=== PATIENT | male | born 1945 | race Caucasian/White ===

== ENCOUNTER 2017-08-05 07:54 | Inpatient (IN) | payer MEDICARE ==
[~2017-08-05] VITALS: Ht 170.2 cm; Wt 66.2 kg
[~2017-08-05 07:54] MED LIST: ALBU2.5V12 NEB; ALLO100T PO; AMLO10TA PO; ATOR40TA PO; BUDE10.2 INH; CYCL-1 PO; FAMO20TA8 PO; FLO0.4C PO; FLUT16SP2 BOTHNARES; FURO80TA87 PO; GABA-532 PO; GUAI-652 PO; LEVO25TA2 PO; MAGN400T6 PO; METO-384 PO; ONDA4TAB9 PO; OXYC-580 PO; PRED10TA23 PO; TRIH5TAB2 PO; VITA-268 PO; ZOLP10TA5 PO
[2017-08-05] MEDS ORDERED: ALBU2.5V11 PO (08:23)
[2017-08-05] MEDS ORDERED: ALLO100T PO (08:24)
[2017-08-05] MEDS ORDERED: AMLO2.5T2 PO (08:25)
[2017-08-05] MEDS ORDERED: VITA-268 PO (08:26)
[2017-08-05] MEDS ORDERED: ATOR40TA PO (08:26)
[2017-08-05] MEDS ORDERED: CHOL2000 PO (08:27)
[2017-08-05] MEDS ORDERED: FAMO20TA8 PO (08:28)
[2017-08-05] MEDS ORDERED: TAMS0.4C32 PO (08:29)
[2017-08-05] MEDS ORDERED: GABA-532 PO (08:32)
[2017-08-05] MEDS ORDERED: FURO-150 PO (08:33)
[2017-08-05] MEDS ORDERED: piperacillin/tazo 4.5gm/100ml 100 ML IV STA (08:34)
[2017-08-05 08:35] LABS: BASOPHILS % (AUTO) 0.2 % (0-1); EOSINOPHILS # (AUTO) 0.2 X10'3 (0-0.9); EOSINOPHILS % (AUTO) 1.5 % (0-6); HEMOGLOBIN 11.5 g/dl (14.0-17.9); LYMPHOCYTES # (AUTO) 1.2 X10'3 (1.1-4.8); LYMPHOCYTES % (AUTO) 8.4 % (21-51); MEAN CORPUSCULAR HEMOGLOBIN 37.2 PG (27.0-31.0); MEAN CORPUSCULAR HGB CONC 34.8 % (33.0-36.5); MEAN CORPUSCULAR VOLUME 106.9 FL (78-98); MONOCYTES # (AUTO) 0.6 X10'3 (0-0.9); MONOCYTES % (AUTO) 4.1 % (2-12); NEUTROPHILS # (AUTO) 12.5 X10'3 (1.8-7.7); NEUTROPHILS % (AUTO) 85.8 % (42-75); PLATELET COUNT 182 X10'3 (140-440); RED BLOOD COUNT 3.09 X10'6 (4.70-6.10); RED CELL DISTRIBUTION WIDTH 17.3 % (11.5-14.5); WHITE BLOOD COUNT 14.5 X10'3 (4.5-11.0)
[2017-08-05] MEDS ORDERED: LEVO25TA2 PO (08:35)
[2017-08-05] MEDS ORDERED: normal saline 1000ML IV soln IVB ONE (08:35)
[2017-08-05] MEDS ORDERED: PRED5TAB PO (08:36)
[2017-08-05] MEDS ORDERED: PER5325T PO (08:38)
[2017-08-05] MEDS ORDERED: METO50TA16 (08:39)
[2017-08-05] MEDS ORDERED: METO50TA16 PO (08:43)
[2017-08-05] MEDS ORDERED: BUDE10.2 INH (08:44)
[2017-08-05] MEDS ORDERED: MAGN400T39 PO (08:44)
[2017-08-05 08:45] LABS: PARTIAL THROMBOPLASTIN TIME 24 SECONDS (22-32); PROTHROMBIN TIME 10.6 SECONDS (9.0-12.0)
[2017-08-05] MEDS ORDERED: ONDA4TAB9 PO (08:49)
[2017-08-05 08:50] LABS: ALANINE AMINOTRANSFERASE 54 U/L (12-78); ALBUMIN 3.2 G/DL (3.4-5.0); ALBUMIN/GLOBULIN RATIO 0.8 (1.1-1.5); ALKALINE PHOSPHATASE 110 IU/L (46-116); ANION GAP 9 (8-16); ASPARTATE AMINO TRANSFERASE 23 U/L (10-37); BILIRUBIN,TOTAL 0.9 MG/DL (0.1-1.0); BLOOD UREA NITROGEN 39 MG/DL (7-18); BUN/CREATININE RATIO 8.6 (5.4-32.0); CALCIUM 9.2 MG/DL (8.5-10.1); CHLORIDE 101 MMOL/L (99-107); CREATININE 4.51 MG/DL (0.60-1.10); GLUCOSE 102 MG/DL (70-104); POTASSIUM 4.3 MMOL/L (3.5-5.1); SODIUM 140 MMOL/L (135-145); TOTAL CARBON DIOXIDE 29.6 MMOL/L (24-32); TOTAL PROTEIN 7.1 G/DL (6.4-8.2); eGFR 13 ML/MIN
[2017-08-05 09:00] LABS: CLARITY,URINE CLEAR (Clear); COLOR,URINE YELLOW (Yellow); GLUCOSE, URINE 100 mg/dl (Neg); KETONES,URINE NEGATIVE (Neg); LEUKOCYTE ESTERASE ,URINE NEGATIVE (Neg); NITRITES, URINE NEGATIVE (Neg); OCCULT BLOOD,URINE TRACE-INTACT (Neg); PH,URINE 8.5 (4.8-8.0); PROTEIN,URINE 100 mg/dl (Neg); UROBILINOGEN,URINE 0.2 E.U/dL (0.2-1.0)
[2017-08-05] MEDS ORDERED: acetaminophen 1,000mg/100ml IV 100 ML IV ONE (09:00)
[2017-08-05 09:06] LABS: UA COLLECTION TYPE VOIDED
[2017-08-05 09:07] LABS: SQUAMOUS EPITHELIAL CELL,UR FEW /LPF (FEW)
[2017-08-05 09:08] LABS: BACTERIA,URINE FEW /HPF (Neg); RBC,URINE 0-2 /HPF (0-2); WBC,URINE 0-4 /HPF (0-4)
[2017-08-05] MEDS ORDERED: piperacillin-tazo 2.25gm/50ml 50 ML IV SCH (09:15)
[2017-08-05] MEDS ORDERED: acetaminophen 325mg tablet PO PRN (09:15)
[2017-08-05 09:16] LABS: TOTAL CELLS COUNTED 100
[2017-08-05 09:17] LABS: ANISOCYTOSIS 1+; PLATELET ESTIMATE NORMAL
[2017-08-05 09:19] LABS: POLYCHROMASIA FEW; SPHEROCYTES 1+
[2017-08-05 09:20] LABS: TOXIC GRANULATION 1+; TOXIC VACUOLATION FEW
[2017-08-05] MEDS ORDERED: METO25TA6 PO (09:35)
[2017-08-05] MEDS: amLODIPine 5mg tablet PO SCH (10:41)
[2017-08-05] MEDS: gabapentin 300mg capsule PO SCH (10:41)
[2017-08-05] MEDS: levoTHYROXINE 25mcg tablet PO SCH (10:41)
[2017-08-05] MEDS: predniSONE 5mg tablet PO SCH (10:42)
[2017-08-05] MEDS: HYDROcodone/acetaminophen 5mg/325mg tablet PO PRN (10:42)
[2017-08-05] MEDS: furosemide 20MG tablet PO SCH (10:42)
[2017-08-05] MEDS: allopurinol 100mg tablet PO SCH (10:43)
[2017-08-05] MEDS: albuterol 2.5 MG/3 ML nebule NEB PRN ×2 (11:14→20:27)
[2017-08-05 14:20] VITALS: BP 116/63
[2017-08-05] MEDS: oxyCODONE/APAP 5-325mg tablet PO PRN (16:12)
[2017-08-05] MEDS: piperacillin-tazo 2.25gm/50ml 50 ML IV SCH ×2 (16:43→17:14)
[2017-08-05 19:00] VITALS: BP 129/63
[2017-08-05] MEDS: docusate sod 100mg capsule PO SCH (20:17)
[2017-08-05] MEDS: famotidine 20mg tablet PO SCH (20:17)
[2017-08-05] MEDS: heparin, porcine 5000 units/ml vial SQ SCH (20:18)
[2017-08-05 23:00] VITALS: BP 133/64
[2017-08-06] MEDS: piperacillin-tazo 2.25gm/50ml 50 ML IV SCH ×4 (02:37→20:00)
[2017-08-06 03:00] VITALS: BP 135/68
[2017-08-06 05:22] LABS: BASOPHILS % (AUTO) 0.2 % (0-1); EOSINOPHILS # (AUTO) 0.2 X10'3 (0-0.9); EOSINOPHILS % (AUTO) 1.4 % (0-6); HEMATOCRIT 29.7 % (42.0-52.0); LYMPHOCYTES % (AUTO) 6.6 % (21-51); MEAN CORPUSCULAR HEMOGLOBIN 36.6 PG (27.0-31.0); MEAN CORPUSCULAR HGB CONC 33.7 % (33.0-36.5); MEAN CORPUSCULAR VOLUME 108.7 FL (78-98); MEAN PLATELET VOLUME 6.5 FL (7.4-10.4); MONOCYTES # (AUTO) 0.6 X10'3 (0-0.9); MONOCYTES % (AUTO) 4.2 % (2-12); NEUTROPHILS % (AUTO) 87.6 % (42-75); PLATELET COUNT 160 X10'3 (140-440); RED BLOOD COUNT 2.73 X10'6 (4.70-6.10); RED CELL DISTRIBUTION WIDTH 17.8 % (11.5-14.5); WHITE BLOOD COUNT 14.9 X10'3 (4.5-11.0)
[2017-08-06 05:39] LABS: ALANINE AMINOTRANSFERASE 35 U/L (12-78); ALBUMIN 2.7 G/DL (3.4-5.0); ALBUMIN/GLOBULIN RATIO 0.7 (1.1-1.5); ALKALINE PHOSPHATASE 96 IU/L (46-116); ANION GAP 12 (8-16); ASPARTATE AMINO TRANSFERASE 14 U/L (10-37); BILIRUBIN,TOTAL 0.7 MG/DL (0.1-1.0); BLOOD UREA NITROGEN 56 MG/DL (7-18); CALCIUM 9.1 MG/DL (8.5-10.1); CHLORIDE 100 MMOL/L (99-107); CREATININE 6.23 MG/DL (0.60-1.10); GLUCOSE 114 MG/DL (70-104); MAGNESIUM 2.6 MG/DL (1.5-2.4); PHOSPHORUS 4.7 MG/DL (2.3-4.5); POTASSIUM 4.2 MMOL/L (3.5-5.1); SODIUM 139 MMOL/L (135-145); TOTAL CARBON DIOXIDE 27.2 MMOL/L (24-32); TOTAL PROTEIN 6.5 G/DL (6.4-8.2); eGFR 9 ML/MIN
[2017-08-06 05:56] LABS: PLATELET ESTIMATE NORMAL; TOTAL CELLS COUNTED 100
[2017-08-06 05:58] LABS: ANISOCYTOSIS 2+; TOXIC GRANULATION 3+
[2017-08-06 06:00] LABS: POLYCHROMASIA FEW; SPHEROCYTES 1+; TOXIC VACUOLATION FEW
[2017-08-06] MEDS: HYDROcodone/acetaminophen 5mg/325mg tablet PO PRN ×3 (06:46→19:58)
[2017-08-06 07:00] VITALS: BP 128/72
[2017-08-06] MEDS: gabapentin 300mg capsule PO SCH (07:56)
[2017-08-06] MEDS: furosemide 20MG tablet PO SCH (07:56)
[2017-08-06] MEDS: allopurinol 100mg tablet PO SCH (07:56)
[2017-08-06] MEDS: docusate sod 100mg capsule PO SCH ×2 (07:57→19:57)
[2017-08-06] MEDS: magnesium oxide 400mg tablet PO SCH (07:57)
[2017-08-06] MEDS: atorvastatin 20mg tablet PO SCH (07:57)
[2017-08-06] MEDS: levoTHYROXINE 25mcg tablet PO SCH (07:57)
[2017-08-06] MEDS: predniSONE 5mg tablet PO SCH (07:57)
[2017-08-06] MEDS: famotidine 20mg tablet PO SCH ×2 (07:57→19:57)
[2017-08-06] MEDS: amLODIPine 5mg tablet PO SCH (07:57)
[2017-08-06] MEDS: vitamin D (cholecalciferol) 1,000 unit tablet PO SCH (07:58)
[2017-08-06] MEDS: fluticasone/vilanterol 200mcg/25mcg inhaler IH SCH (08:00)
[2017-08-06] MEDS ORDERED: heparin 1,000 units/ml 10ml inj IV ONE (08:00)
[2017-08-06] MEDS ORDERED: normal saline 1000ml 250 ML IV PRN (08:00)
[2017-08-06] MEDS ORDERED: LIDOcaine 1% (10mg/ml) 2ml vial SQ ONE (08:00)
[2017-08-06] MEDS: heparin, porcine 5000 units/ml vial SQ SCH ×2 (08:06→19:57)
[2017-08-06] MEDS: albuterol 2.5 MG/3 ML nebule NEB PRN (08:09)
[2017-08-06 11:00] VITALS: BP 124/89
[2017-08-06 15:00] VITALS: BP 135/70
[2017-08-06 19:00] VITALS: BP 127/66
[2017-08-06] MEDS: lactobacillus rhamnosus 10,000 MMU CELLS/CAPSULE PO SCH (19:56)
[2017-08-06 23:00] VITALS: BP 133/77
[2017-08-07] MEDS: ondansetron 4mg rapidly disintigrating tab PO PRN (02:46)
[2017-08-07] MEDS: piperacillin-tazo 2.25gm/50ml 50 ML IV SCH ×4 (02:47→20:13)
[2017-08-07] MEDS: oxyCODONE/APAP 5-325mg tablet PO PRN (02:47)
[2017-08-07 03:00] VITALS: BP 131/82
[2017-08-07] MEDS: albuterol 2.5 MG/3 ML nebule NEB PRN ×2 (03:18→11:43)
[2017-08-07 05:19] LABS: BASOPHILS % (AUTO) 0.2 % (0-1); EOSINOPHILS # (AUTO) 0.3 X10'3 (0-0.9); EOSINOPHILS % (AUTO) 2.7 % (0-6); HEMATOCRIT 29.2 % (42.0-52.0); LYMPHOCYTES # (AUTO) 1.2 X10'3 (1.1-4.8); LYMPHOCYTES % (AUTO) 10.9 % (21-51); MEAN CORPUSCULAR HEMOGLOBIN 36.8 PG (27.0-31.0); MEAN CORPUSCULAR HGB CONC 34.2 % (33.0-36.5); MEAN CORPUSCULAR VOLUME 107.7 FL (78-98); MEAN PLATELET VOLUME 6.6 FL (7.4-10.4); MONOCYTES # (AUTO) 0.6 X10'3 (0-0.9); MONOCYTES % (AUTO) 5.1 % (2-12); NEUTROPHILS # (AUTO) 9.1 X10'3 (1.8-7.7); NEUTROPHILS % (AUTO) 81.1 % (42-75); PLATELET COUNT 176 X10'3 (140-440); RED BLOOD COUNT 2.71 X10'6 (4.70-6.10); RED CELL DISTRIBUTION WIDTH 17.3 % (11.5-14.5); WHITE BLOOD COUNT 11.3 X10'3 (4.5-11.0)
[2017-08-07 05:38] LABS: ALANINE AMINOTRANSFERASE 28 U/L (12-78); ALBUMIN 2.4 G/DL (3.4-5.0); ALBUMIN/GLOBULIN RATIO 0.6 (1.1-1.5); ALKALINE PHOSPHATASE 79 IU/L (46-116); ANION GAP 10 (8-16); ASPARTATE AMINO TRANSFERASE 12 U/L (10-37); BILIRUBIN,TOTAL 0.6 MG/DL (0.1-1.0); BLOOD UREA NITROGEN 34 MG/DL (7-18); BUN/CREATININE RATIO 8.4 (5.4-32.0); CALCIUM 8.7 MG/DL (8.5-10.1); CHLORIDE 100 MMOL/L (99-107); CREATININE 4.05 MG/DL (0.60-1.10); GLUCOSE 125 MG/DL (70-104); MAGNESIUM 2.2 MG/DL (1.5-2.4); PHOSPHORUS 4.2 MG/DL (2.3-4.5); POTASSIUM 4.4 MMOL/L (3.5-5.1); SODIUM 140 MMOL/L (135-145); TOTAL CARBON DIOXIDE 30.5 MMOL/L (24-32); TOTAL PROTEIN 6.1 G/DL (6.4-8.2); eGFR 15 ML/MIN
[2017-08-07 07:00] VITALS: BP 134/75
[2017-08-07] MEDS: fluticasone/vilanterol 200mcg/25mcg inhaler IH SCH (08:00)
[2017-08-07] MEDS: atorvastatin 20mg tablet PO SCH (08:39)
[2017-08-07] MEDS: docusate sod 100mg capsule PO SCH ×2 (08:40→20:13)
[2017-08-07] MEDS: HYDROcodone/acetaminophen 5mg/325mg tablet PO PRN ×3 (08:40→11:55)
[2017-08-07] MEDS: furosemide 20MG tablet PO SCH (08:41)
[2017-08-07] MEDS: vitamin D (cholecalciferol) 1,000 unit tablet PO SCH (08:41)
[2017-08-07] MEDS: gabapentin 300mg capsule PO SCH (08:41)
[2017-08-07] MEDS: levoTHYROXINE 25mcg tablet PO SCH (08:41)
[2017-08-07] MEDS: magnesium oxide 400mg tablet PO SCH (08:41)
[2017-08-07] MEDS: allopurinol 100mg tablet PO SCH (08:41)
[2017-08-07] MEDS: lactobacillus rhamnosus 10,000 MMU CELLS/CAPSULE PO SCH ×2 (08:41→20:13)
[2017-08-07] MEDS: famotidine 20mg tablet PO SCH ×2 (08:41→20:13)
[2017-08-07] MEDS: amLODIPine 5mg tablet PO SCH (08:42)
[2017-08-07] MEDS: predniSONE 5mg tablet PO SCH (08:42)
[2017-08-07] MEDS: heparin, porcine 5000 units/ml vial SQ SCH ×2 (08:45→20:12)
[2017-08-07 11:00] VITALS: BP 115/71
[2017-08-07] MEDS ORDERED: ipratropium/albuterol 3ml nebule NEB PRN (12:15)
[2017-08-07] MEDS: guaiFENesin ER 600mg tablet PO SCH ×2 (12:26→20:12)
[2017-08-07] MEDS: ipratropium/albuterol 3ml nebule NEB SCH ×2 (15:09→20:54)
[2017-08-07 19:00] VITALS: BP 123/64
[2017-08-07] MEDS: zolpidem 5mg tablet PO PRN (21:11)
[2017-08-07 23:00] VITALS: BP 146/67
[2017-08-08] MEDS: piperacillin-tazo 2.25gm/50ml 50 ML IV SCH ×4 (02:04→20:49)
[2017-08-08 03:00] VITALS: BP 139/78
[2017-08-08] MEDS: ipratropium/albuterol 3ml nebule NEB SCH ×4 (03:15→21:28)
[2017-08-08] MEDS: oxyCODONE/APAP 5-325mg tablet PO PRN ×2 (04:18→15:30)
[2017-08-08 06:00] VITALS: BP 126/69
[2017-08-08 06:51] LABS: BASOPHILS % (AUTO) 0.3 % (0-1); EOSINOPHILS # (AUTO) 0.2 X10'3 (0-0.9); EOSINOPHILS % (AUTO) 2.4 % (0-6); HEMATOCRIT 26.7 % (42.0-52.0); HEMOGLOBIN 9.2 g/dl (14.0-17.9); MEAN CORPUSCULAR HEMOGLOBIN 36.8 PG (27.0-31.0); MEAN CORPUSCULAR HGB CONC 34.4 % (33.0-36.5); MEAN CORPUSCULAR VOLUME 107.2 FL (78-98); MEAN PLATELET VOLUME 6.3 FL (7.4-10.4); MONOCYTES # (AUTO) 0.5 X10'3 (0-0.9); MONOCYTES % (AUTO) 5.6 % (2-12); NEUTROPHILS # (AUTO) 7.5 X10'3 (1.8-7.7); NEUTROPHILS % (AUTO) 80.7 % (42-75); PLATELET COUNT 177 X10'3 (140-440); RED BLOOD COUNT 2.49 X10'6 (4.70-6.10); RED CELL DISTRIBUTION WIDTH 16.9 % (11.5-14.5); WHITE BLOOD COUNT 9.3 X10'3 (4.5-11.0)
[2017-08-08 07:10] LABS: ALANINE AMINOTRANSFERASE 26 U/L (12-78); ALBUMIN 2.3 G/DL (3.4-5.0); ALBUMIN/GLOBULIN RATIO 0.6 (1.1-1.5); ALKALINE PHOSPHATASE 82 IU/L (46-116); ANION GAP 11 (8-16); ASPARTATE AMINO TRANSFERASE 11 U/L (10-37); BILIRUBIN,TOTAL 0.7 MG/DL (0.1-1.0); BLOOD UREA NITROGEN 55 MG/DL (7-18); BUN/CREATININE RATIO 9.1 (5.4-32.0); CALCIUM 8.1 MG/DL (8.5-10.1); CHLORIDE 100 MMOL/L (99-107); CREATININE 6.07 MG/DL (0.60-1.10); GLUCOSE 125 MG/DL (70-104); MAGNESIUM 2.6 MG/DL (1.5-2.4); PHOSPHORUS 6.6 MG/DL (2.3-4.5); POTASSIUM 4.5 MMOL/L (3.5-5.1); SODIUM 139 MMOL/L (135-145); TOTAL CARBON DIOXIDE 27.6 MMOL/L (24-32); TOTAL PROTEIN 6.1 G/DL (6.4-8.2); eGFR 9 ML/MIN
[2017-08-08] MEDS: atorvastatin 20mg tablet PO SCH (07:41)
[2017-08-08] MEDS: furosemide 20MG tablet PO SCH (07:41)
[2017-08-08] MEDS: gabapentin 300mg capsule PO SCH (07:41)
[2017-08-08] MEDS: lactobacillus rhamnosus 10,000 MMU CELLS/CAPSULE PO SCH ×2 (07:41→20:49)
[2017-08-08] MEDS: amLODIPine 5mg tablet PO SCH (07:41)
[2017-08-08] MEDS: levoTHYROXINE 25mcg tablet PO SCH (07:41)
[2017-08-08] MEDS: predniSONE 5mg tablet PO SCH (07:42)
[2017-08-08] MEDS: allopurinol 100mg tablet PO SCH (07:42)
[2017-08-08] MEDS: guaiFENesin ER 600mg tablet PO SCH ×2 (07:42→20:49)
[2017-08-08] MEDS: famotidine 20mg tablet PO SCH ×2 (07:42→20:49)
[2017-08-08] MEDS: vitamin D (cholecalciferol) 1,000 unit tablet PO SCH (07:42)
[2017-08-08] MEDS: magnesium oxide 400mg tablet PO SCH (07:42)
[2017-08-08] MEDS: heparin, porcine 5000 units/ml vial SQ SCH ×2 (07:43→20:49)
[2017-08-08] MEDS: docusate sod 100mg capsule PO SCH ×2 (07:43→20:49)
[2017-08-08] MEDS: fluticasone/vilanterol 200mcg/25mcg inhaler IH SCH (08:21)
[2017-08-08] MEDS: HYDROcodone/acetaminophen 5mg/325mg tablet PO PRN (08:48)
[2017-08-08] MEDS ORDERED: magnesium hydroxide 30ml (MOM) UD suspension PO PRN (13:45)
[2017-08-08] MEDS ORDERED: polyethylene glycol 3350 17gm powd pack PO PRN (13:45)
[2017-08-08] MEDS ORDERED: bisacodyl 10mg suppository rectal RC PRN (13:45)
[2017-08-08 16:00] VITALS: BP 145/75
[2017-08-08 19:00] VITALS: BP 129/70
[2017-08-08 23:00] VITALS: BP 129/70
[2017-08-09] MEDS: piperacillin-tazo 2.25gm/50ml 50 ML IV SCH ×4 (01:39→20:50)
[2017-08-09 03:00] VITALS: BP 134/80
[2017-08-09] MEDS: ipratropium/albuterol 3ml nebule NEB SCH ×4 (03:51→20:18)
[2017-08-09] MEDS: HYDROcodone/acetaminophen 5mg/325mg tablet PO PRN ×3 (04:30→23:43)
[2017-08-09 05:55] LABS: BASOPHILS % (AUTO) 0.3 % (0-1); EOSINOPHILS # (AUTO) 0.2 X10'3 (0-0.9); EOSINOPHILS % (AUTO) 2.7 % (0-6); HEMATOCRIT 27.1 % (42.0-52.0); HEMOGLOBIN 9.3 g/dl (14.0-17.9); LYMPHOCYTES % (AUTO) 12.1 % (21-51); MEAN CORPUSCULAR HEMOGLOBIN 36.9 PG (27.0-31.0); MEAN CORPUSCULAR HGB CONC 34.4 % (33.0-36.5); MEAN CORPUSCULAR VOLUME 107.3 FL (78-98); MEAN PLATELET VOLUME 6.5 FL (7.4-10.4); MONOCYTES # (AUTO) 0.5 X10'3 (0-0.9); MONOCYTES % (AUTO) 5.8 % (2-12); NEUTROPHILS # (AUTO) 6.6 X10'3 (1.8-7.7); NEUTROPHILS % (AUTO) 79.1 % (42-75); PLATELET COUNT 181 X10'3 (140-440); RED BLOOD COUNT 2.52 X10'6 (4.70-6.10); RED CELL DISTRIBUTION WIDTH 16.9 % (11.5-14.5); WHITE BLOOD COUNT 8.3 X10'3 (4.5-11.0)
[2017-08-09 06:00] VITALS: BP 147/71
[2017-08-09 06:08] LABS: ALANINE AMINOTRANSFERASE 21 U/L (12-78); ALBUMIN 2.4 G/DL (3.4-5.0); ALBUMIN/GLOBULIN RATIO 0.6 (1.1-1.5); ALKALINE PHOSPHATASE 87 IU/L (46-116); ANION GAP 16 (8-16); ASPARTATE AMINO TRANSFERASE 11 U/L (10-37); BILIRUBIN,TOTAL 0.9 MG/DL (0.1-1.0); BLOOD UREA NITROGEN 65 MG/DL (7-18); BUN/CREATININE RATIO 8.7 (5.4-32.0); CHLORIDE 97 MMOL/L (99-107); CREATININE 7.44 MG/DL (0.60-1.10); GLUCOSE 130 MG/DL (70-104); MAGNESIUM 2.7 MG/DL (1.5-2.4); PHOSPHORUS 8.5 MG/DL (2.3-4.5); POTASSIUM 4.7 MMOL/L (3.5-5.1); SODIUM 138 MMOL/L (135-145); TOTAL CARBON DIOXIDE 24.6 MMOL/L (24-32); TOTAL PROTEIN 6.4 G/DL (6.4-8.2); eGFR 7 ML/MIN
[2017-08-09] MEDS: allopurinol 100mg tablet PO SCH (07:12)
[2017-08-09] MEDS: atorvastatin 20mg tablet PO SCH (07:12)
[2017-08-09] MEDS: levoTHYROXINE 25mcg tablet PO SCH (07:12)
[2017-08-09] MEDS: gabapentin 300mg capsule PO SCH (07:13)
[2017-08-09] MEDS: guaiFENesin ER 600mg tablet PO SCH ×2 (07:13→20:51)
[2017-08-09] MEDS: lactobacillus rhamnosus 10,000 MMU CELLS/CAPSULE PO SCH ×2 (07:13→20:50)
[2017-08-09] MEDS: predniSONE 5mg tablet PO SCH (07:13)
[2017-08-09] MEDS: docusate sod 100mg capsule PO SCH ×2 (07:13→20:50)
[2017-08-09] MEDS: amLODIPine 5mg tablet PO SCH (07:13)
[2017-08-09] MEDS: famotidine 20mg tablet PO SCH ×2 (07:13→20:50)
[2017-08-09] MEDS: vitamin D (cholecalciferol) 1,000 unit tablet PO SCH (07:13)
[2017-08-09] MEDS: furosemide 20MG tablet PO SCH (07:13)
[2017-08-09] MEDS: fluticasone/vilanterol 200mcg/25mcg inhaler IH SCH (07:28)
[2017-08-09] MEDS: heparin, porcine 5000 units/ml vial SQ SCH ×2 (07:32→20:51)
[2017-08-09] MEDS: magnesium oxide 400mg tablet PO SCH (07:32)
[2017-08-09] MEDS ORDERED: LIDOcaine 1% (10mg/ml) 2ml vial SQ ONE (08:00)
[2017-08-09] MEDS ORDERED: epoetin 20,000 units/ml inj IV ONE (08:00)
[2017-08-09] MEDS ORDERED: heparin 1,000 units/ml 10ml inj IV ONE (08:00)
[2017-08-09] MEDS ORDERED: normal saline 1000ml 250 ML IV PRN (08:00)
[2017-08-09 11:00] VITALS: BP 147/76
[2017-08-09 15:00] VITALS: BP 141/76
[2017-08-09 19:00] VITALS: BP 136/80
[2017-08-09] MEDS: zolpidem 5mg tablet PO PRN (20:51)
[2017-08-09 23:00] VITALS: BP 136/76
[2017-08-10 02:06] LABS: CLARITY,URINE Clear (Clear); COLOR,URINE Yellow (Yellow); GLUCOSE, URINE 100 mg/dl (Neg); KETONES,URINE Negative (Neg); LEUKOCYTE ESTERASE ,URINE Negative (Neg); NITRITES, URINE Negative (Neg); OCCULT BLOOD,URINE Negative (Neg); PH,URINE >=9.0 (4.8-8.0); PROTEIN,URINE 100 mg/dl (Neg); UROBILINOGEN,URINE 0.2 E.U/dL (0.2-1.0)
[2017-08-10 02:25] LABS: UA COLLECTION TYPE VOIDED
[2017-08-10 02:27] LABS: BACTERIA,URINE NONE SEEN /HPF (Neg); RBC,URINE NONE SEEN /HPF (0-2); SQUAMOUS EPITHELIAL CELL,UR FEW /LPF (FEW); WBC,URINE NONE SEEN /HPF (0-4)
[2017-08-10] MEDS: piperacillin-tazo 2.25gm/50ml 50 ML IV SCH ×3 (02:43→14:10)
[2017-08-10] MEDS: ipratropium/albuterol 3ml nebule NEB SCH ×4 (02:58→20:43)
[2017-08-10 03:00] VITALS: BP 132/77
[2017-08-10 05:11] LABS: BASOPHILS % (AUTO) 0.4 % (0-1); EOSINOPHILS # (AUTO) 0.2 X10'3 (0-0.9); HEMATOCRIT 31.6 % (42.0-52.0); HEMOGLOBIN 10.7 g/dl (14.0-17.9); LYMPHOCYTES # (AUTO) 1.3 X10'3 (1.1-4.8); LYMPHOCYTES % (AUTO) 13.2 % (21-51); MEAN CORPUSCULAR HEMOGLOBIN 36.6 PG (27.0-31.0); MEAN CORPUSCULAR VOLUME 107.7 FL (78-98); MEAN PLATELET VOLUME 6.2 FL (7.4-10.4); MONOCYTES # (AUTO) 0.7 X10'3 (0-0.9); MONOCYTES % (AUTO) 6.8 % (2-12); NEUTROPHILS # (AUTO) 7.9 X10'3 (1.8-7.7); NEUTROPHILS % (AUTO) 77.6 % (42-75); PLATELET COUNT 197 X10'3 (140-440); RED BLOOD COUNT 2.93 X10'6 (4.70-6.10); RED CELL DISTRIBUTION WIDTH 16.9 % (11.5-14.5); WHITE BLOOD COUNT 10.1 X10'3 (4.5-11.0)
[2017-08-10 05:44] LABS: ALANINE AMINOTRANSFERASE 32 U/L (12-78); ALBUMIN 2.6 G/DL (3.4-5.0); ALBUMIN/GLOBULIN RATIO 0.6 (1.1-1.5); ALKALINE PHOSPHATASE 85 IU/L (46-116); ANION GAP 13 (8-16); ASPARTATE AMINO TRANSFERASE 21 U/L (10-37); BILIRUBIN,TOTAL 0.8 MG/DL (0.1-1.0); BLOOD UREA NITROGEN 26 MG/DL (7-18); BUN/CREATININE RATIO 6.1 (5.4-32.0); CALCIUM 9.3 MG/DL (8.5-10.1); CHLORIDE 100 MMOL/L (99-107); CREATININE 4.27 MG/DL (0.60-1.10); GLUCOSE 109 MG/DL (70-104); MAGNESIUM 2.3 MG/DL (1.5-2.4); PHOSPHORUS 6.3 MG/DL (2.3-4.5); POTASSIUM 4.1 MMOL/L (3.5-5.1); SODIUM 139 MMOL/L (135-145); TOTAL CARBON DIOXIDE 26.2 MMOL/L (24-32); TOTAL PROTEIN 6.9 G/DL (6.4-8.2); eGFR 14 ML/MIN
[2017-08-10 06:00] VITALS: BP 155/78
[2017-08-10] MEDS: predniSONE 5mg tablet PO SCH (07:19)
[2017-08-10] MEDS: vitamin D (cholecalciferol) 1,000 unit tablet PO SCH (07:19)
[2017-08-10] MEDS: lactobacillus rhamnosus 10,000 MMU CELLS/CAPSULE PO SCH ×2 (07:19→19:56)
[2017-08-10] MEDS: allopurinol 100mg tablet PO SCH (07:19)
[2017-08-10] MEDS: ondansetron/PF 4mg/2ml inj IV PRN (07:19)
[2017-08-10] MEDS: gabapentin 300mg capsule PO SCH (07:19)
[2017-08-10] MEDS: amLODIPine 5mg tablet PO SCH (07:20)
[2017-08-10] MEDS: heparin, porcine 5000 units/ml vial SQ SCH ×2 (07:21→19:57)
[2017-08-10] MEDS: furosemide 20MG tablet PO SCH ×2 (07:21→20:03)
[2017-08-10] MEDS: guaiFENesin ER 600mg tablet PO SCH ×2 (07:21→19:55)
[2017-08-10] MEDS: famotidine 20mg tablet PO SCH ×2 (07:21→19:57)
[2017-08-10] MEDS: levoTHYROXINE 25mcg tablet PO SCH (07:22)
[2017-08-10] MEDS: atorvastatin 20mg tablet PO SCH (07:22)
[2017-08-10] MEDS: magnesium oxide 400mg tablet PO SCH (07:22)
[2017-08-10] MEDS: docusate sod 100mg capsule PO SCH ×2 (07:27→19:55)
[2017-08-10] MEDS: fluticasone/vilanterol 200mcg/25mcg inhaler IH SCH (08:16)
[2017-08-10 11:00] VITALS: BP 137/66
[2017-08-10] MEDS: HYDROcodone/acetaminophen 5mg/325mg tablet PO PRN ×2 (11:48→17:03)
[2017-08-10 15:00] VITALS: BP 157/79
[2017-08-10] MEDS: tamsulosin 0.4mg capsule PO SCH (15:36)
[2017-08-10] MEDS: cefTAZidime inj. 1 GM in normal saline 100ml IV soln 100 ML IV SCH (15:36)
[2017-08-10 19:00] VITALS: BP 153/76
[2017-08-10] MEDS: trihexyphenidyl 2mg tablet PO SCH (20:02)
[2017-08-10] MEDS: zolpidem 5mg tablet PO PRN (22:03)
[2017-08-10 23:00] VITALS: BP 153/79
[2017-08-11] MEDS: ipratropium/albuterol 3ml nebule NEB SCH ×4 (02:15→21:05)
[2017-08-11 03:00] VITALS: BP 156/79
[2017-08-11 06:00] VITALS: BP 138/77
[2017-08-11] MEDS ORDERED: LIDOcaine 1% (10mg/ml) 2ml vial SQ ONE (08:00)
[2017-08-11] MEDS ORDERED: furosemide 40mg tablet PO SCH (08:00)
[2017-08-11] MEDS ORDERED: tamsulosin 0.4mg capsule PO SCH (08:00)
[2017-08-11] MEDS ORDERED: heparin 1,000 units/ml 10ml inj IV ONE (08:00)
[2017-08-11] MEDS ORDERED: normal saline 1000ml 250 ML IV PRN (08:00)
[2017-08-11] MEDS: fluticasone/vilanterol 200mcg/25mcg inhaler IH SCH (08:00)
[2017-08-11] MEDS ORDERED: epoetin 20,000 units/ml inj IV ONE (08:00)
[2017-08-11] MEDS: amLODIPine 5mg tablet PO SCH (08:00)
[2017-08-11] MEDS: ondansetron/PF 4mg/2ml inj IV PRN ×2 (08:05→19:48)
[2017-08-11] MEDS: atorvastatin 20mg tablet PO SCH (08:07)
[2017-08-11] MEDS: docusate sod 100mg capsule PO SCH ×2 (08:07→19:45)
[2017-08-11] MEDS: guaiFENesin ER 600mg tablet PO SCH ×2 (08:08→19:42)
[2017-08-11] MEDS: gabapentin 300mg capsule PO SCH (08:08)
[2017-08-11] MEDS: famotidine 20mg tablet PO SCH ×2 (08:08→19:42)
[2017-08-11] MEDS: tamsulosin 0.4mg capsule PO SCH (08:08)
[2017-08-11] MEDS: lactobacillus rhamnosus 10,000 MMU CELLS/CAPSULE PO SCH ×2 (08:08→19:42)
[2017-08-11] MEDS: vitamin B comp w/Vit. C tab 1 TAB TABLET PO SCH (08:09)
[2017-08-11] MEDS: vitamin D (cholecalciferol) 1,000 unit tablet PO SCH (08:09)
[2017-08-11] MEDS: trihexyphenidyl 2mg tablet PO SCH ×3 (08:09→21:23)
[2017-08-11] MEDS: predniSONE 5mg tablet PO SCH (08:09)
[2017-08-11] MEDS: allopurinol 100mg tablet PO SCH (08:10)
[2017-08-11] MEDS: levoTHYROXINE 25mcg tablet PO SCH (08:10)
[2017-08-11] MEDS: HYDROcodone/acetaminophen 5mg/325mg tablet PO PRN ×2 (08:10→17:19)
[2017-08-11] MEDS: magnesium oxide 400mg tablet PO SCH (08:11)
[2017-08-11] MEDS: furosemide 20MG tablet PO SCH ×3 (08:12→21:23)
[2017-08-11] MEDS: heparin, porcine 5000 units/ml vial SQ SCH ×2 (08:31→19:43)
[2017-08-11 11:00] VITALS: BP 130/82
[2017-08-11] MEDS: cefTAZidime inj. 1 GM in normal saline 100ml IV soln 100 ML IV SCH (13:28)
[2017-08-11 15:00] VITALS: BP 146/71
[2017-08-11 19:00] VITALS: BP 133/78
[2017-08-11] MEDS: zolpidem 5mg tablet PO PRN (21:21)
[2017-08-11 23:00] VITALS: BP 137/73
[2017-08-12] MEDS: ipratropium/albuterol 3ml nebule NEB SCH ×4 (02:39→20:49)
[2017-08-12 03:00] VITALS: BP_SYST 149
[2017-08-12] MEDS: HYDROcodone/acetaminophen 5mg/325mg tablet PO PRN ×2 (03:00→08:20)
[2017-08-12 06:00] VITALS: BP 141/80
[2017-08-12] MEDS ORDERED: NORMAL SALINE IV SCH (08:00)
[2017-08-12] MEDS ORDERED: CEFTAZIDIME IV SCH (08:00)
[2017-08-12] MEDS: docusate sod 100mg capsule PO SCH ×2 (08:00→20:55)
[2017-08-12] MEDS: heparin, porcine 5000 units/ml vial SQ SCH ×2 (08:15→20:55)
[2017-08-12] MEDS: trihexyphenidyl 2mg tablet PO SCH ×3 (08:16→20:55)
[2017-08-12] MEDS: magnesium oxide 400mg tablet PO SCH (08:17)
[2017-08-12] MEDS: gabapentin 300mg capsule PO SCH (08:17)
[2017-08-12] MEDS: allopurinol 100mg tablet PO SCH (08:17)
[2017-08-12] MEDS: amLODIPine 5mg tablet PO SCH (08:17)
[2017-08-12] MEDS: atorvastatin 20mg tablet PO SCH (08:17)
[2017-08-12] MEDS: vitamin D (cholecalciferol) 1,000 unit tablet PO SCH (08:17)
[2017-08-12] MEDS: vitamin B comp w/Vit. C tab 1 TAB TABLET PO SCH (08:17)
[2017-08-12] MEDS: famotidine 20mg tablet PO SCH ×2 (08:17→20:55)
[2017-08-12] MEDS: lactobacillus rhamnosus 10,000 MMU CELLS/CAPSULE PO SCH ×2 (08:17→20:56)
[2017-08-12] MEDS: tamsulosin 0.4mg capsule PO SCH (08:18)
[2017-08-12] MEDS: guaiFENesin ER 600mg tablet PO SCH ×2 (08:18→20:56)
[2017-08-12] MEDS: furosemide 20MG tablet PO SCH ×3 (08:19→20:55)
[2017-08-12] MEDS: predniSONE 5mg tablet PO SCH (08:19)
[2017-08-12] MEDS: levoTHYROXINE 25mcg tablet PO SCH (08:20)
[2017-08-12] MEDS: fluticasone/vilanterol 200mcg/25mcg inhaler IH SCH (08:26)
[2017-08-12] MEDS: ondansetron/PF 4mg/2ml inj IV PRN ×2 (08:27→20:56)
[2017-08-12] MEDS: cefTAZidime inj. 1 GM in normal saline 100ml IV soln 100 ML IV SCH (09:17)
[2017-08-12 11:00] VITALS: BP 154/71
[2017-08-12 19:00] VITALS: BP 129/67
[2017-08-12] MEDS: zolpidem 5mg tablet PO PRN (20:55)
[2017-08-12 23:00] VITALS: BP 130/71
[2017-08-13] VITALS (7 sets, daily range): BP systolic 122–155; BP diastolic 55–87
[2017-08-13] MEDS: ipratropium/albuterol 3ml nebule NEB SCH ×4 (03:05→20:09)
[2017-08-13] MEDS: HYDROcodone/acetaminophen 5mg/325mg tablet PO PRN ×2 (07:50→18:19)
[2017-08-13] MEDS ORDERED: normal saline 1000ml 250 ML IV PRN (08:00)
[2017-08-13] MEDS: trihexyphenidyl 2mg tablet PO SCH ×3 (08:00→20:58)
[2017-08-13] MEDS ORDERED: LIDOcaine 1% (10mg/ml) 2ml vial SQ ONE (08:00)
[2017-08-13] MEDS: amLODIPine 5mg tablet PO SCH (08:00)
[2017-08-13] MEDS: furosemide 20MG tablet PO SCH ×3 (08:00→20:58)
[2017-08-13] MEDS ORDERED: heparin 1,000unit/ml 10ml vial 10 ML IV ONE (08:00)
[2017-08-13] MEDS: fluticasone/vilanterol 200mcg/25mcg inhaler IH SCH (08:34)
[2017-08-13] MEDS: ondansetron 4mg rapidly disintigrating tab PO PRN (09:08)
[2017-08-13] MEDS ORDERED: tobramycin 40mg/ml inj IV ONE (11:45)
[2017-08-13] MEDS ORDERED: TOBRAMYCIN IV ONE (11:50)
[2017-08-13] MEDS ORDERED: NORMAL SALINE IV ONE (11:50)
[2017-08-13] MEDS: cefTAZidime inj. 1 GM in normal saline 100ml IV soln 100 ML IV SCH (13:32)
[2017-08-13] MEDS: heparin, porcine 5000 units/ml vial SQ SCH ×2 (13:33→20:59)
[2017-08-13] MEDS: vitamin D (cholecalciferol) 1,000 unit tablet PO SCH (13:33)
[2017-08-13] MEDS: levoTHYROXINE 25mcg tablet PO SCH (13:34)
[2017-08-13] MEDS: magnesium oxide 400mg tablet PO SCH (13:34)
[2017-08-13] MEDS: docusate sod 100mg capsule PO SCH ×2 (13:34→20:57)
[2017-08-13] MEDS: tamsulosin 0.4mg capsule PO SCH (13:34)
[2017-08-13] MEDS: guaiFENesin ER 600mg tablet PO SCH ×2 (13:34→20:57)
[2017-08-13] MEDS: predniSONE 5mg tablet PO SCH (13:34)
[2017-08-13] MEDS: vitamin B comp w/Vit. C tab 1 TAB TABLET PO SCH (13:35)
[2017-08-13] MEDS: famotidine 20mg tablet PO SCH ×2 (13:35→20:57)
[2017-08-13] MEDS: allopurinol 100mg tablet PO SCH (13:35)
[2017-08-13] MEDS: lactobacillus rhamnosus 10,000 MMU CELLS/CAPSULE PO SCH ×2 (13:35→20:58)
[2017-08-13] MEDS: atorvastatin 20mg tablet PO SCH (13:35)
[2017-08-13] MEDS: gabapentin 300mg capsule PO SCH (13:35)
[2017-08-13] MEDS: zolpidem 5mg tablet PO PRN (20:57)
[2017-08-14] VITALS (7 sets, daily range): BP systolic 104–156; BP diastolic 65–87
[2017-08-14] MEDS: ipratropium/albuterol 3ml nebule NEB SCH ×4 (02:38→20:39)
[2017-08-14] MEDS: HYDROcodone/acetaminophen 5mg/325mg tablet PO PRN ×2 (05:04→10:54)
[2017-08-14 06:08] LABS: BASOPHILS % (AUTO) 0.1 % (0-1); EOSINOPHILS # (AUTO) 0.2 X10'3 (0-0.9); EOSINOPHILS % (AUTO) 2.3 % (0-6); HEMATOCRIT 30.4 % (42.0-52.0); HEMOGLOBIN 10.5 g/dl (14.0-17.9); LYMPHOCYTES # (AUTO) 1.2 X10'3 (1.1-4.8); MEAN CORPUSCULAR HEMOGLOBIN 36.8 PG (27.0-31.0); MEAN CORPUSCULAR HGB CONC 34.4 % (33.0-36.5); MEAN CORPUSCULAR VOLUME 107.1 FL (78-98); MEAN PLATELET VOLUME 6.6 FL (7.4-10.4); MONOCYTES # (AUTO) 0.4 X10'3 (0-0.9); MONOCYTES % (AUTO) 3.6 % (2-12); NEUTROPHILS # (AUTO) 8.1 X10'3 (1.8-7.7); PLATELET COUNT 213 X10'3 (140-440); RED BLOOD COUNT 2.84 X10'6 (4.70-6.10); RED CELL DISTRIBUTION WIDTH 17.3 % (11.5-14.5); WHITE BLOOD COUNT 9.9 X10'3 (4.5-11.0)
[2017-08-14 06:47] LABS: ALANINE AMINOTRANSFERASE 42 U/L (12-78); ALBUMIN 2.9 G/DL (3.4-5.0); ALBUMIN/GLOBULIN RATIO 0.7 (1.1-1.5); ALKALINE PHOSPHATASE 95 IU/L (46-116); ANION GAP 11 (8-16); ASPARTATE AMINO TRANSFERASE 20 U/L (10-37); BILIRUBIN,TOTAL 0.9 MG/DL (0.1-1.0); BLOOD UREA NITROGEN 26 MG/DL (7-18); BUN/CREATININE RATIO 5.8 (5.4-32.0); CALCIUM 9.2 MG/DL (8.5-10.1); CHLORIDE 98 MMOL/L (99-107); GLUCOSE 111 MG/DL (70-104); POTASSIUM 4.5 MMOL/L (3.5-5.1); SODIUM 136 MMOL/L (135-145); TOTAL CARBON DIOXIDE 27.5 MMOL/L (24-32); TOTAL PROTEIN 6.9 G/DL (6.4-8.2); eGFR 13 ML/MIN
[2017-08-14] MEDS: cefTAZidime inj. 1 GM in normal saline 100ml IV soln 100 ML IV SCH (07:30)
[2017-08-14] MEDS: allopurinol 100mg tablet PO SCH (07:33)
[2017-08-14] MEDS: famotidine 20mg tablet PO SCH ×2 (07:33→19:38)
[2017-08-14] MEDS: atorvastatin 20mg tablet PO SCH (07:33)
[2017-08-14] MEDS: guaiFENesin ER 600mg tablet PO SCH ×2 (07:33→19:38)
[2017-08-14] MEDS: gabapentin 300mg capsule PO SCH (07:36)
[2017-08-14] MEDS: predniSONE 5mg tablet PO SCH (07:36)
[2017-08-14] MEDS: vitamin B comp w/Vit. C tab 1 TAB TABLET PO SCH (07:36)
[2017-08-14] MEDS: vitamin D (cholecalciferol) 1,000 unit tablet PO SCH (07:36)
[2017-08-14] MEDS: furosemide 20MG tablet PO SCH ×3 (07:36→19:42)
[2017-08-14] MEDS: lactobacillus rhamnosus 10,000 MMU CELLS/CAPSULE PO SCH ×2 (07:36→19:38)
[2017-08-14] MEDS: tamsulosin 0.4mg capsule PO SCH (07:36)
[2017-08-14] MEDS: amLODIPine 5mg tablet PO SCH (07:36)
[2017-08-14] MEDS: levoTHYROXINE 25mcg tablet PO SCH (07:36)
[2017-08-14] MEDS: docusate sod 100mg capsule PO SCH ×2 (07:36→19:38)
[2017-08-14] MEDS: magnesium oxide 400mg tablet PO SCH (07:36)
[2017-08-14] MEDS: heparin, porcine 5000 units/ml vial SQ SCH ×2 (07:37→19:39)
[2017-08-14] MEDS: trihexyphenidyl 2mg tablet PO SCH ×3 (08:00→19:48)
[2017-08-14] MEDS: fluticasone/vilanterol 200mcg/25mcg inhaler IH SCH (09:08)
[2017-08-14] MEDS: ondansetron 4mg rapidly disintigrating tab PO PRN (12:58)
[2017-08-14] MEDS: zolpidem 5mg tablet PO PRN (19:46)
[2017-08-15 03:00] VITALS: BP 118/73
[2017-08-15] MEDS: ipratropium/albuterol 3ml nebule NEB SCH ×4 (03:00→20:43)
[2017-08-15 06:49] VITALS: BP 163/78
[2017-08-15] MEDS: vitamin D (cholecalciferol) 1,000 unit tablet PO SCH (07:46)
[2017-08-15] MEDS: magnesium oxide 400mg tablet PO SCH (07:46)
[2017-08-15] MEDS: trihexyphenidyl 2mg tablet PO SCH ×3 (07:46→20:58)
[2017-08-15] MEDS: furosemide 20MG tablet PO SCH ×3 (07:47→20:59)
[2017-08-15] MEDS: gabapentin 300mg capsule PO SCH (07:47)
[2017-08-15] MEDS: levoTHYROXINE 25mcg tablet PO SCH (07:47)
[2017-08-15] MEDS: atorvastatin 20mg tablet PO SCH (07:47)
[2017-08-15] MEDS: guaiFENesin ER 600mg tablet PO SCH ×2 (07:47→21:00)
[2017-08-15] MEDS: allopurinol 100mg tablet PO SCH (07:47)
[2017-08-15] MEDS: lactobacillus rhamnosus 10,000 MMU CELLS/CAPSULE PO SCH ×2 (07:47→21:00)
[2017-08-15] MEDS: predniSONE 5mg tablet PO SCH (07:47)
[2017-08-15] MEDS: vitamin B comp w/Vit. C tab 1 TAB TABLET PO SCH (07:47)
[2017-08-15] MEDS: amLODIPine 5mg tablet PO SCH (07:48)
[2017-08-15] MEDS: famotidine 20mg tablet PO SCH ×2 (07:48→20:59)
[2017-08-15] MEDS: docusate sod 100mg capsule PO SCH ×2 (07:48→20:59)
[2017-08-15] MEDS: tamsulosin 0.4mg capsule PO SCH (07:48)
[2017-08-15] MEDS: heparin, porcine 5000 units/ml vial SQ SCH ×2 (07:49→21:01)
[2017-08-15] MEDS: cefTAZidime inj. 1 GM in normal saline 100ml IV soln 100 ML IV SCH (08:00)
[2017-08-15] MEDS: fluticasone/vilanterol 200mcg/25mcg inhaler IH SCH (08:39)
[2017-08-15 11:00] VITALS: BP 132/65
[2017-08-15 14:27] LABS: BASOPHILS % (AUTO) 0.1 % (0-1); EOSINOPHILS # (AUTO) 0.2 X10'3 (0-0.9); EOSINOPHILS % (AUTO) 1.8 % (0-6); HEMATOCRIT 29.5 % (42.0-52.0); HEMOGLOBIN 10.1 g/dl (14.0-17.9); LYMPHOCYTES # (AUTO) 0.4 X10'3 (1.1-4.8); LYMPHOCYTES % (AUTO) 3.5 % (21-51); MEAN CORPUSCULAR HEMOGLOBIN 37.3 PG (27.0-31.0); MEAN CORPUSCULAR HGB CONC 34.4 % (33.0-36.5); MEAN CORPUSCULAR VOLUME 108.5 FL (78-98); MEAN PLATELET VOLUME 6.4 FL (7.4-10.4); MONOCYTES # (AUTO) 0.2 X10'3 (0-0.9); MONOCYTES % (AUTO) 1.7 % (2-12); NEUTROPHILS # (AUTO) 11.9 X10'3 (1.8-7.7); NEUTROPHILS % (AUTO) 92.9 % (42-75); PLATELET COUNT 212 X10'3 (140-440); RED BLOOD COUNT 2.72 X10'6 (4.70-6.10); WHITE BLOOD COUNT 12.9 X10'3 (4.5-11.0)
[2017-08-15 14:42] LABS: ALANINE AMINOTRANSFERASE 34 U/L (12-78); ALBUMIN 2.8 G/DL (3.4-5.0); ALBUMIN/GLOBULIN RATIO 0.8 (1.1-1.5); ALKALINE PHOSPHATASE 102 IU/L (46-116); ANION GAP 11 (8-16); ASPARTATE AMINO TRANSFERASE 16 U/L (10-37); BILIRUBIN,TOTAL 1.2 MG/DL (0.1-1.0); BLOOD UREA NITROGEN 46 MG/DL (7-18); BUN/CREATININE RATIO 6.3 (5.4-32.0); CHLORIDE 96 MMOL/L (99-107); CREATININE 7.25 MG/DL (0.60-1.10); GLUCOSE 229 MG/DL (70-104); POTASSIUM 5.2 MMOL/L (3.5-5.1); SODIUM 133 MMOL/L (135-145); TOTAL CARBON DIOXIDE 26.2 MMOL/L (24-32); TOTAL PROTEIN 6.4 G/DL (6.4-8.2); eGFR 7 ML/MIN
[2017-08-15 15:00] VITALS: BP 123/60
[2017-08-15] MEDS ORDERED: cefTAZidime inj. 1 GM in normal saline 100ml IV soln 100 ML IV ONE (15:55)
[2017-08-15 19:00] VITALS: BP 117/78
[2017-08-15] MEDS: zolpidem 5mg tablet PO PRN (20:59)
[2017-08-15 23:00] VITALS: BP 164/76
[2017-08-16 03:00] VITALS: BP 145/71
[2017-08-16] MEDS: ipratropium/albuterol 3ml nebule NEB SCH ×3 (03:32→14:44)
[2017-08-16 07:00] VITALS: BP 162/78
[2017-08-16] MEDS: guaiFENesin ER 600mg tablet PO SCH (07:27)
[2017-08-16] MEDS: lactobacillus rhamnosus 10,000 MMU CELLS/CAPSULE PO SCH (07:28)
[2017-08-16] MEDS: heparin, porcine 5000 units/ml vial SQ SCH (07:28)
[2017-08-16] MEDS: vitamin D (cholecalciferol) 1,000 unit tablet PO SCH (07:28)
[2017-08-16] MEDS: tamsulosin 0.4mg capsule PO SCH (07:28)
[2017-08-16] MEDS: predniSONE 5mg tablet PO SCH (07:28)
[2017-08-16] MEDS: famotidine 20mg tablet PO SCH (07:28)
[2017-08-16] MEDS: allopurinol 100mg tablet PO SCH (07:28)
[2017-08-16] MEDS: docusate sod 100mg capsule PO SCH (07:28)
[2017-08-16] MEDS: atorvastatin 20mg tablet PO SCH (07:28)
[2017-08-16] MEDS: furosemide 20MG tablet PO SCH ×2 (07:28→13:29)
[2017-08-16] MEDS: levoTHYROXINE 25mcg tablet PO SCH (07:28)
[2017-08-16] MEDS: vitamin B comp w/Vit. C tab 1 TAB TABLET PO SCH (07:28)
[2017-08-16] MEDS: trihexyphenidyl 2mg tablet PO SCH ×2 (07:28→13:30)
[2017-08-16] MEDS: gabapentin 300mg capsule PO SCH (07:28)
[2017-08-16] MEDS: HYDROcodone/acetaminophen 5mg/325mg tablet PO PRN (07:29)
[2017-08-16] MEDS: magnesium oxide 400mg tablet PO SCH (07:29)
[2017-08-16 07:54] LABS: BASOPHILS % (AUTO) 0.3 % (0-1); EOSINOPHILS # (AUTO) 0.3 X10'3 (0-0.9); EOSINOPHILS % (AUTO) 3.1 % (0-6); HEMOGLOBIN 9.6 g/dl (14.0-17.9); LYMPHOCYTES # (AUTO) 1.1 X10'3 (1.1-4.8); LYMPHOCYTES % (AUTO) 10.9 % (21-51); MEAN CORPUSCULAR HEMOGLOBIN 36.8 PG (27.0-31.0); MEAN CORPUSCULAR HGB CONC 34.2 % (33.0-36.5); MEAN CORPUSCULAR VOLUME 107.7 FL (78-98); MEAN PLATELET VOLUME 6.4 FL (7.4-10.4); MONOCYTES # (AUTO) 0.4 X10'3 (0-0.9); MONOCYTES % (AUTO) 4.1 % (2-12); NEUTROPHILS # (AUTO) 8.4 X10'3 (1.8-7.7); NEUTROPHILS % (AUTO) 81.6 % (42-75); PLATELET COUNT 193 X10'3 (140-440); WHITE BLOOD COUNT 10.3 X10'3 (4.5-11.0)
[2017-08-16] MEDS ORDERED: heparin 1,000unit/ml 10ml vial 10 ML IV ONE (08:00)
[2017-08-16] MEDS ORDERED: epoetin 20,000 units/ml inj IV ONE (08:00)
[2017-08-16] MEDS ORDERED: cefTAZidime inj 2 GM in normal saline 100ml IV soln 100 ML IV SCH ×2 (08:00→20:00)
[2017-08-16] MEDS ORDERED: LIDOcaine 1% (10mg/ml) 2ml vial SQ ONE (08:00)
[2017-08-16] MEDS: amLODIPine 5mg tablet PO SCH (08:00)
[2017-08-16] MEDS ORDERED: normal saline 1000ml 250 ML IV PRN (08:00)
[2017-08-16 08:08] LABS: ALANINE AMINOTRANSFERASE 30 U/L (12-78); ALBUMIN 2.6 G/DL (3.4-5.0); ALBUMIN/GLOBULIN RATIO 0.8 (1.1-1.5); ALKALINE PHOSPHATASE 87 IU/L (46-116); ANION GAP 16 (8-16); ASPARTATE AMINO TRANSFERASE 15 U/L (10-37); BILIRUBIN,TOTAL 1.2 MG/DL (0.1-1.0); BLOOD UREA NITROGEN 57 MG/DL (7-18); BUN/CREATININE RATIO 6.8 (5.4-32.0); CALCIUM 8.6 MG/DL (8.5-10.1); CHLORIDE 97 MMOL/L (99-107); CREATININE 8.38 MG/DL (0.60-1.10); GLUCOSE 97 MG/DL (70-104); POTASSIUM 4.9 MMOL/L (3.5-5.1); SODIUM 136 MMOL/L (135-145); TOTAL CARBON DIOXIDE 23.2 MMOL/L (24-32); eGFR 6 ML/MIN
[2017-08-16] MEDS: fluticasone/vilanterol 200mcg/25mcg inhaler IH SCH (08:35)
[2017-08-16] MEDS ORDERED: tobramycin 40mg/ml inj IV ONE (10:25)
[2017-08-16 11:04] LABS: MAGNESIUM 2.5 MG/DL (1.5-2.4); PHOSPHORUS 8.8 MG/DL (2.3-4.5)
[2017-08-16] MEDS ORDERED: TOBRAMYCIN IV ONE (12:00)
[2017-08-16] MEDS ORDERED: NORMAL SALINE IV ONE (12:00)
[2017-08-16] MEDS: ondansetron 4mg rapidly disintigrating tab PO PRN (14:36)
== END 2017-08-16 16:20 | disposition home or self-care (01) | DRG 871 ==
LOC: ER 07:55 → ED HOLD 09:12 → PCU 3S 14:23
PROVIDERS: ADMIT Internal Medicine Critical Care Medicine
PROC: 5A1D70Z Performance of Urinary Filtration, Intermittent, Less than 6 Hours Per Day (ICD-10-PCS; 2017-08-06)
PROC: 5A1D70Z Performance of Urinary Filtration, Intermittent, Less than 6 Hours Per Day (ICD-10-PCS; 2017-08-09)
PROC: 5A1D70Z Performance of Urinary Filtration, Intermittent, Less than 6 Hours Per Day (ICD-10-PCS; 2017-08-11)
PROC: 5A1D70Z Performance of Urinary Filtration, Intermittent, Less than 6 Hours Per Day (ICD-10-PCS; 2017-08-13)
PROC: 5A1D70Z Performance of Urinary Filtration, Intermittent, Less than 6 Hours Per Day (ICD-10-PCS; principal; 2017-08-16)
DX: A41.9 Sepsis, unspecified organism (principal); G93.40 Encephalopathy, unspecified; T86.12 Kidney transplant failure; I13.11 Hypertensive heart and chronic kidney disease without heart failure, with stage 5 chronic kidney disease, or end stage renal disease; J18.9 Pneumonia, unspecified organism; N18.6 End stage renal disease; J44.0 Chronic obstructive pulmonary disease with (acute) lower respiratory infection; J44.1 Chronic obstructive pulmonary disease with (acute) exacerbation; R44.3 Hallucinations, unspecified; R33.9 Retention of urine, unspecified; J98.8 Other specified respiratory disorders; Z96.611 Presence of right artificial shoulder joint; G89.29 Other chronic pain; Y83.0 Surgical operation with transplant of whole organ as the cause of abnormal reaction of the patient, or of later complication, without mention of misadventure at the time of the procedure; M54.9 Dorsalgia, unspecified; J20.9 Acute bronchitis, unspecified; Z99.2 Dependence on renal dialysis; Z90.49 Acquired absence of other specified parts of digestive tract; Z79.51 Long term (current) use of inhaled steroids; Z79.899 Other long term (current) drug therapy; Z85.828 Personal history of other malignant neoplasm of skin; Z88.5 Allergy status to narcotic agent; Z88.2 Allergy status to sulfonamides; Z88.8 Allergy status to other drugs, medicaments and biological substances; Z91.018 Allergy to other foods
CPT/HCPCS: 36415; 71045; 71101; 80053; 81001; 82607; 82746; 83605; 83735; 84100; 84145; 85025; 85610; 85730; 87040; 87070; 87186; 93005; 94640; 94667; 94668; 94760; 96374; 97110; 97116; 97162; 97530; 99291; A4344; A4353; A6213; A6258; A6402; C1758; G0257; J0131; J0713; J0885; J1644; J2405; J2543; J3260; J3490; J7030; J7512